=== PATIENT | female | born 1960 | race Caucasian/White ===

== ENCOUNTER 2016-08-12 14:46 | Emergency (ER) | payer OTHER ==
[2016-08-12 16:33] LABS: BASO # 0.1 10_X3_uL (0.0-0.1); BASO % 0.5 % (0.1-1.2); EOS # 0.3 10_X3_uL (0.0-0.4); EOS % 2.9 % (0.7-5.8); GRAN # 7.1 10_X3_uL (1.6-6.1); GRAN % 70.9 % (34.0-71.1); HEMATOCRIT 47.2 % (34-45); HEMOGLOBIN 16.4 g/dL (11.2-15.7); LYMPH # 2.2 10_X3_uL (1.2-3.7); LYMPH % 21.5 % (19.3-51.7); MEAN CORPUSCULAR HEMOGLOBIN 29.4 pg (27.0-33.0); MEAN CORPUSCULAR HGB CONC 34.7 g/dL (32.0-36.0); MEAN CORPUSCULAR VOLUME 84.7 fL (79-95); MEAN PLATELET VOLUME 9.8 fl (7.5-11.5); MONO # 0.4 10_X3_uL (0.2-0.9); MONO % 4.2 % (4.7-12.5); PLATELET COUNT 264 x10_3/uL (182-369); RED BLOOD COUNT 5.57 x10_6/uL (3.9-5.2); RED CELL DISTRIBUTION WIDTH 14.8 % (11.7-14.4)
[2016-08-12 16:46] LABS: PROTHROMBIN TIME (PATIENT) 9.6 SECONDS (9.6-10.8)
[2016-08-12 16:49] LABS: ALBUMIN 3.7 gm/dL (3.4-5.0); ALKALINE PHOSPHATASE 182 U/L (50-136); ALT/SGPT 12 U/L (3.5-33.9); AST/SGOT 9 U/L (7.04-26.96); BLOOD UREA NITROGEN 23 mg/dL (7-18); CALCIUM 9.4 mg/dL (8.7-10.7); CARBON DIOXIDE 21 mmol/L (21-32); CREATINE KINASE 38 U/L (21-215); CREATININE 1.5 mg/dL (0.6-1.3); GLUCOSE,RANDOM 240 mg/dL (70-99); POTASSIUM 4.3 mmol/L (3.5-5.1); SODIUM 137 mmol/L (136-145); TOTAL PROTEIN 7.3 gm/dL (6.4-8.2)
[2016-08-12 16:51] LABS: BILIRUBIN,TOTAL < 0.15 mg/dL (0.0-1.0)
== END 2016-08-12 17:39 | disposition short-term general hospital (02) ==
LOC: ER 14:46
PROVIDERS: Internal Medicine
DX: I63.9 Cerebral infarction, unspecified (principal); R53.1 Weakness; G89.29 Other chronic pain; M54.9 Dorsalgia, unspecified; E78.5 Hyperlipidemia, unspecified; I10 Essential (primary) hypertension; E11.9 Type 2 diabetes mellitus without complications; F17.210 Nicotine dependence, cigarettes, uncomplicated
CPT/HCPCS: 36415; 70450; 80053; 82550; 82553; 85025; 85610; 85730; 93005; 99070; 99285-25